=== PATIENT | male | born 1955 | race Caucasian/White ===

== ENCOUNTER 2019-10-10 06:12 | Emergency (ER) | payer SELFPAY ==
[2019-10-10 06:32] VITALS: BP 117/77
--- NOTE | 2019-10-10 06:36 | ED Physician Documentation ---
Upper Respiratory Symptoms - HISTORIAN Historian: patient - HPI Stated Complaint: "I have a cough not sure if maybe I don't have pneumonia" Chief Complaint: Cough/ Upper Respiratory Onset: days ago (6) Context: other (he is here from [place] ) Associated Symptoms: denies: fever, chills Worsened by Deep Breath: No Further Comments: yes (He states he has had a cough that no fever - He has tried OTC meds with some help with sleep. No sick contacts. No rash) - ROS CONST/EYES: denies: weakness, eye redness, eye itching - PAST HX Lung Disease: none Immunizations: other (he is not sure ) Allergies/Adverse Reactions: Allergies Allergy/AdvReac Type Severity Reaction Status Date / Time No Known Allergies Allergy Verified 10/10/19 06:32 Home Medications: Ambulatory Orders Medication Instructions Recorded NK 10/10/19 - SOCIAL HX Smoking History: cigarettes Alcohol Use: occasionally Drug Use: none - FAMILY HX Family History: none - VITAL SIGNS Vital Signs: Vital Signs Temp Pulse Resp BP Pulse Ox 97.6 F 82 16 117/77 97 10/10/19 06:22 10/10/19 06:22 10/10/19 06:22 10/10/19 06:22 10/10/19 06:22 - REVIEWED ASSESSMENTS Nursing Assessment Reviewed: Yes Vitals Reviewed: Yes Upper Respiratory Symptoms - EXAM General Appearance: no acute distress, alert EENT: eyes nml inspection, nml ENT inspection, PERRL, ear nml. No: pain over sinuses Neck: normal inspection Respiratory: no resp. distress, breath sounds nml, speaks full sentences Abdomen: non-tender CVS: reg rate & rhythm Skin: color nml, no rash, warm,dry Extremities: non-tender, normal range of motion, no evidence of injury, no edema Neuro/Psych: oriented x3 Discharge Clincal Impression: Cough Comments: 1. Tessalon Pearls - take 1 by mouth every 8 hours as needed for cough 2. Medrol Dose pack - take as directed 3. Zyretec - take 1 by mouth daily 4. STOP smoking 5. See PCP n 2-4 days 6. Return to ER for any increased concerns Condition: Stable Disposition: 01 HOME, SELF-CARE Decision to Admit: NO Date of Decison to Admit: 10/10/19 Decision Time: 06:48
== END 2019-10-10 06:49 | disposition home or self-care (01) ==
LOC: ED 06:12
DX: R05 Cough (principal); F17.210 Nicotine dependence, cigarettes, uncomplicated
CPT/HCPCS: 99281; 99282

== ENCOUNTER 2019-10-16 16:54 | Emergency (ER) | payer SELFPAY ==
[2019-10-16 17:24] VITALS: BP 128/88
[2019-10-16] MEDS ORDERED: BUDESONIDE 0.5MG/2ML AMPUL.NEB NEB ONE (17:37)
[2019-10-16] MEDS: BUDESONIDE 0.5MG/2ML AMPUL.NEB NEB SCH (17:41)
--- NOTE | 2019-10-16 17:42 | Diagnostic Imaging Report ---
PATIENT MR#: [id number] PATIENT PATIENT NAME: DIA RAUSCH DATE OF : 1955 REFERRING PHYSICIAN: Malvin Ellis EXAM DATE: 10/16/2019 ACCESSION NUMBER: [id number] EXAM DESCRIPTION: CHEST 2VIEW Examination: PA and lateral chest. History: Evaluate lung claudio. Comparison exam: None provided. Findings: PA and lateral views of the chest demonstrates a normal cardiac and mediastinal silhouette. Mildly tortuous aorta. No focal infiltrate. No blunting of the costophrenic margins. Osseous structures are appropr iate for age. Impression: No acute pulmonary process. Read by: Dr. Cheo Crane Transcribed by: Transcribed Date: Electronically signed by: Dr. Cheo Crane Date signed: 10/16/2019 5:42:09 PM
[2019-10-16] MEDS: KETOROLAC TROMETHAMINE 30 MG/1ML VIAL IM ONE (17:50)
--- NOTE | 2019-10-16 18:33 | ED Physician Documentation ---
General Adult - HISTORIAN Historian: patient - HPI Stated Complaint: cough,congestion Chief Complaint: General Adult Onset: other (2 weeks) Timing: still present Severity: moderate Further Comments: yes (Pt is a 64 yo male with a persistent cough that he has had for more than a week. Pt was seen here on 10-10-19 and rx'd Tessalon Perles and a Medrol dose pack. Sx are unimproved. Pt reports coughing green sputum. Pt says he is getting a headache from the coughing.) - ROS CONST: no problems CVS/RESP: cough GI/: none MS/SKIN/LYMPH: none NEURO/PSYCH: headache - PAST HX Past History: none Other History: none Allergies/Adverse Reactions: Allergies Allergy/AdvReac Type Severity Reaction Status Date / Time tetracycline Allergy Verified 10/16/19 17:10 Home Medications: Ambulatory Orders Medication Instructions Recorded Benzonatate 200 mg pe PO Q6H PRN 10/16/19 - SOCIAL HX Smoking History: cigarettes - FAMILY HX Family History: No - VITAL SIGNS Vital Signs: Vital Signs Temp Pulse Resp BP Pulse Ox 98.2 F 84 20 128/88 96 10/16/19 17:00 10/16/19 17:00 10/16/19 17:00 10/16/19 17:00 10/16/19 17:00 - REVIEWED ASSESSMENTS Nursing Assessment Reviewed: Yes Vitals Reviewed: Yes Progress - Progress Progress: CXR: neg Rx Z-marline, as directed Rx Robitussin AC 240 ml, 10 ml po q 4-6 h prn, disp: 240 ml Rx Flovent (110 mcg/spray) 2 puffs q 12 h x 3 days; 1 puff q 12 h x 3 days; 1 p uff qd x 3 days. - EKG/XRAY/CT XRAY: chest (No acute pulmonary process.) ED Results Lab/Radiology - Orders Orders: ED Orders Category Date Time Status CHEST 2VIEW [RAD] Stat Exams 10/16/19 Completed Budesonide [Pulmicort] Med 10/16/19 21:00 Ordered 0.5 mg NEB BID Ketorolac Tromethamine [Toradol] Med 10/16/19 17:49 Discontinued 30 mg IM NOW ONE General Adult Physical Exam - PHYSICAL EXAM GENERAL APPEARANCE: moderate distress EENT: pharynx normal NECK: normal inspection, supple RESPIRATORY: chest non-tender, wheezes, other (cough) CVS: reg rate & rhythm, heart sounds normal ABDOMEN: soft, no organomegaly, normal bowel sounds BACK: normal inspection SKIN: warm/dry, normal color EXTREMITIES: non-tender, normal range of motion, no evidence of injury NEURO: oriented X3, motor nml, sensation nml Discharge Clincal Impression: Persistent cough Referrals: Primary Doctor,No [Primary Care Provider] - Condition: Stable Disposition: 01 HOME, SELF-CARE Decision to Admit: NO Decision Time: 19:10
== END 2019-10-16 18:48 | disposition home or self-care (01) ==
LOC: ED 16:54
DX: R05 Cough (principal); R09.89 Other specified symptoms and signs involving the circulatory and respiratory systems
CPT/HCPCS: 71046; 94640; 96372; 99284; J1885; J7626